=== PATIENT | male | born 2000 | race Asian ===

== ENCOUNTER 2021-11-01 19:02 | Emergency (ER) | payer SELFPAY ==
[~2021-11-01] VITALS: Ht 185.4 cm; Wt 65.4 kg
[2021-11-01 20:01] VITALS: BP 106/65
== END 2021-11-01 23:22 | disposition left against medical advice (07) ==
LOC: ER 19:02
DX: Z53.21 Procedure and treatment not carried out due to patient leaving prior to being seen by health care provider (principal)